=== PATIENT | female | born 1995 | race Two or more races ===

== ENCOUNTER 2025-07-09 20:35 | Emergency (ER) | payer MEDICAID, OTHER ==
[~2025-07-09] VITALS: Ht 152.4 cm; Wt 54.9 kg
[2025-07-09 20:58] VITALS: BP 111/82; PULSE 87; RESP 16; TEMP 98; O2SAT 95
== END 2025-07-10 01:46 | disposition left against medical advice (07) ==
LOC: ER 20:35
DX: R10.31 Right lower quadrant pain (principal); Z53.21 Procedure and treatment not carried out due to patient leaving prior to being seen by health care provider